=== PATIENT | female | born 1990 ===

== ENCOUNTER 2024-05-08 14:27 | Outpatient (CLI) | payer OTHER | END 2024-05-08 14:30 | disposition home or self-care (01) | LOC: PRENATAL 14:27 | PROVIDERS: ATTEND Obstetrics & Gynecology Maternal & Fetal Medicine | DX: O44.00 Complete placenta previa NOS or without hemorrhage, unspecified trimester (principal); Z3A.22 22 weeks gestation of pregnancy ==

== ENCOUNTER 2024-07-19 12:01 | Outpatient (CLI) | payer OTHER | END 2024-07-19 12:02 | disposition home or self-care (01) | LOC: PRENATAL 12:01 | PROVIDERS: ATTEND Obstetrics & Gynecology Maternal & Fetal Medicine | DX: O26.849 Uterine size-date discrepancy, unspecified trimester (principal); O36.8199 Decreased fetal movements, unspecified trimester, other fetus; Z3A.33 33 weeks gestation of pregnancy ==

== ENCOUNTER 2024-08-24 00:25 | Inpatient (IN) | payer OTHER ==
[~2024-08-24] VITALS: Ht 154.9 cm; Wt 78.9 kg
[2024-08-24] VITALS (8 sets, daily range): BP systolic 97–136; BP diastolic 56–78
[2024-08-24] MEDS ORDERED: RINGERS SOLUTION,LACTATED 1,000 ML IV SCH (00:30)
[2024-08-24] MEDS ORDERED: PRENATAL TABLE1 EAC4 PO (00:34)
[2024-08-24] MEDS ORDERED: MILK OF MA400 MG/5 M PO (00:36)
[2024-08-24 01:24] LABS: HEMATOCRIT 33.5 % (36.0-45.00); HEMOGLOBIN 11.3 g/dL (12.0-15.00); MEAN CELL VOLUME 90.5 fL (80.00-100.00); MEAN CORPUSCULAR HEMOGLOBIN 30.5 pg (27.00-32.0); MEAN CORPUSCULAR HGB CONC 33.7 g/dl (32.0-36.0); PLATELET COUNT 212 K/uL (150-450); RED CELL DISTRIBUTION WIDTH 16.4 % (11.5-14.5)
[2024-08-24 01:30] LABS: INR < 0.93; PARTIAL THROMBOPLASTIN TIME 27.6 SECONDS (22.0-34.0); PROTHROMBIN TIME 10.2 SECONDS (9.0-11.5)
[2024-08-24 01:37] LABS: ALBUMIN 2.6 gm/dL (3.4-5.0); BILIRUBIN TOTAL 0.35 mg/dL (0.3-1.2); CALCIUM 8.3 mg/dL (8.5-10.1); CREATININE SERUM 0.56 mg/dL (0.55-1.02); GFR 126.26; GLOBULINA 3.9 G/DL (2.4-3.5); POTASSIUM 3.71 mEq/L (3.5-5.1); TOTAL PROTEIN 6.5 gm/dL (6.4-8.2)
[2024-08-24] MEDS ORDERED: MORPHINE SULFATE 4 MG/ML CARTRIDGE IV STA (02:00)
[2024-08-24] MEDS ORDERED: ACETAMINOPHEN 500 MG GEL..CAP PO PRN (06:45)
[2024-08-24] MEDS ORDERED: OXYTOCIN 1,000 ML IV SCH (06:45)
[2024-08-24] MEDS ORDERED: IBUprofen 400 MG TABLET PO PRN (06:45)
[2024-08-24] MEDS ORDERED: CHLORHEXIDINE GLUCONATE 120 ML BOTTLE TOP SCH (06:45)
[2024-08-24] MEDS ORDERED: ERYTHROMYCIN BASE OPHT 1GM EACH TUBE OP ONE (07:00)
[2024-08-24] MEDS ORDERED: LIDOCAINE HCL 1% 10ML VIAL IJ ONE (07:00)
[2024-08-24] MEDS ORDERED: OXYTOCIN 500 ML IV SCH (07:00)
[2024-08-24] MEDS ORDERED: BENZOCAINE/MENTHOL 90 ML BOTTLE TOP SCH (08:00)
[2024-08-24] MEDS ORDERED: DOCUSATE SODIUM 100MG CAP PO SCH (09:00)
[2024-08-25 01:59] VITALS: BP 90/58
[2024-08-25 09:46] VITALS: BP 105/71
[2024-08-25 16:24] VITALS: BP 113/75
[2024-08-26] VITALS: BP 100/69
[2024-08-26 08:12] VITALS: BP 108/73
[2024-08-26] MEDS ORDERED: NAPR500T14 PO (11:46)
== END 2024-08-26 12:04 | disposition home or self-care (01) | DRG 807 ==
LOC: OB/GYN 00:25 → LDR 00:25 → OB/GYN 08:50
PROVIDERS: ADMIT Obstetrics & Gynecology; ATTEND Obstetrics & Gynecology
PROC: 10E0XZZ Delivery of Products of Conception, External Approach (ICD-10-PCS; principal; 2024-08-24)
PROC: 0UQMXZZ Repair Vulva, External Approach (ICD-10-PCS; 2024-08-24)
PROC: 0W8NXZZ Division of Female Perineum, External Approach (ICD-10-PCS; 2024-08-24)
PROC: 4A1HXCZ Monitoring of Products of Conception, Cardiac Rate, External Approach (ICD-10-PCS; 2024-08-24)
DX: O70.0 First degree perineal laceration during delivery (principal); Z37.0 Single live birth; Z3A.38 38 weeks gestation of pregnancy